=== PATIENT | male | born 1985 | race Caucasian/White ===

== ENCOUNTER 2018-03-25 20:23 | Emergency (ER) | payer OTHER ==
[~2018-03-25] VITALS: Ht 182.9 cm; Wt 82.0 kg
[2018-03-25] MEDS ORDERED: BICILLIN-LA 1,200,000 UNITS/2 ML IM ONE (21:00)
[2018-03-25] MEDS ORDERED: ACETAMINOPHEN 500 MG TABLET PO ONE (21:00)
[2018-03-25] MEDS ORDERED: KETOROLAC 30 MG/1 ML IM ONE (21:00)
[2018-03-25] MEDS ORDERED: DEXAMETHASONE 4 MG TABLET PO ONE (21:00)
[2018-03-25] MEDS ORDERED: KETOROLAC 30 MG/1 ML ONE (21:17)
[2018-03-25] MEDS ORDERED: ACETAMINOPHEN 500 MG TABLET ONE (21:17)
[2018-03-25] MEDS ORDERED: DEXAMETHASONE 4 MG TABLET ONE (21:17)
[2018-03-25 22:02] VITALS: BP 118/77
== END 2018-03-25 22:16 | disposition home or self-care (01) ==
LOC: ED 21:00
DX: J02.0 Streptococcal pharyngitis (principal); B34.9 Viral infection, unspecified
CPT/HCPCS: 96372; 99284; J0561; J1885